=== PATIENT | male | born 1960 | race Two or more races ===

== ENCOUNTER 2022-03-01 17:48 | Emergency (ER) | payer MEDICAID ==
[~2022-03-01] VITALS: Ht 170.2 cm; Wt 74.8 kg
--- NOTE | 2022-03-01 18:52 | NUR ---
still for triage, endorsed to 7pm charge Juan miner
--- NOTE | 2022-03-01 19:46 | NUR ---
Patient's son at bedside
--- NOTE | 2022-03-01 19:50 | NUR ---
Dr Mtz in room MSE in progress
[2022-03-01] MEDS ORDERED: OXYCODONE/APAP 5-325 MG TABLET ONE (19:58)
[2022-03-01] MEDS ORDERED: OXYCODONE/APAP 5-325 MG TABLET PO ONE (20:00)
[2022-03-01] MEDS ORDERED: OXYC-128 PO (22:23)
--- NOTE | 2022-03-01 22:59 | NUR ---
Patient discharged to home in stable condition. Written and verbal after care instructions given. Patient verbalizes understanding of instructions. Stressed follow up or return to ER for worsening s/s. Patient is a/ox4, NAD noted. Patient is accompanied by son
[2022-03-01 23:04] VITALS: BP 137/78
== END 2022-03-01 23:05 | disposition home or self-care (01) ==
LOC: ER 18:01
DX: S70.01XA Contusion of right hip, initial encounter (principal); S70.11XA Contusion of right thigh, initial encounter; S09.90XA Unspecified injury of head, initial encounter; W10.9XXA Fall (on) (from) unspecified stairs and steps, initial encounter; Y92.89 Other specified places as the place of occurrence of the external cause
CPT/HCPCS: 73502; 73700; A4663

== ENCOUNTER 2023-09-21 10:32 | Emergency (ER) | payer MEDICAID ==
[~2023-09-21] VITALS: Ht 170.2 cm; Wt 73.9 kg
[~2023-09-21 10:32] MED LIST: OXYC-128 PO
[2023-09-21] MEDS ORDERED: TAMS-3 PO (11:11)
[2023-09-21 11:48] LABS: BASOPHILS % (AUTO) 0.4 % (0.0-2.0); EOSINOPHILS # (AUTO) 0.1 K/uL (0.0-0.7); EOSINOPHILS % (AUTO) 0.8 % (0.0-7.0); HEMATOCRIT 43.8 % (36.7-47.1); HEMOGLOBIN 14.6 g/dL (12.5-16.3); LYMPHOCYTES # (AUTO) 2.3 K/uL (0.8-4.8); LYMPHOCYTES % (AUTO) 24.1 % (20.5-51.5); MEAN CORPUSCULAR HEMOGLOBIN 29.5 uug (23.8-33.4); MEAN CORPUSCULAR HGB CONC 33 g/dL (32.5-36.3); MEAN CORPUSCULAR VOLUME 88.5 fL (73.0-96.2); MONOCYTES # (AUTO) 0.9 K/uL (0.1-1.30); MONOCYTES % (AUTO) 9.2 % (0.0-11.0); NEUTROPHILS # (AUTO) 6.1 K/uL (1.8-8.9); NEUTROPHILS % (AUTO) 65.5 % (38.5-71.5); PLATELET COUNT (AUTO) 229 K/uL (152-348); RED BLOOD CELL COUNT(AUTO) 4.95 MIL/uL (4.06-5.63); RED CELL DISTRIBUTION WIDTH 13.2 % (12.1-16.2); WHITE BLOOD COUNT (AUTO) 9.3 K/uL (3.6-10.2)
[2023-09-21 11:54] LABS: DIFFERENTIAL COMMENT 1
[2023-09-21 12:03] LABS: CALCIUM 8.4 mg/dL (8.5-10.1); CARBON DIOXIDE 27 mmol/L (21-32); CHLORIDE 105 mmol/L (98-107); CREATININE 0.8 mg/dL (0.6-1.3); GLUCOSE 102 mg/dL (74-106); POTASSIUM 4.1 mmol/L (3.5-5.1); SODIUM SERUM 140 mmol/L (136-145); UREA NITROGEN, BLOOD 24 mg/dL (7-18)
[2023-09-21 12:16] LABS: ALANINE AMINOTRANSFERASE 26 U/L (16-63); ALKALINE PHOSPHATASE 68 U/L (50-136); ASPARTATE AMINOTRANSFERASE 14 U/L (15-37); BILIRUBIN,DIRECT 0.3 mg/dL (0.0-0.2); BILIRUBIN,TOTAL 1.4 mg/dL (0.2-1.0); NT-PRO BNP 23 pg/mL (0-125); TOTAL PROTEIN, SERUM 7.6 g/dL (6.4-8.2)
[2023-09-21] MEDS ORDERED: SWABABLE VALVE TRANSFER SET EA MC ONE (12:41)
[2023-09-21] MEDS ORDERED: IV NORMAL SALINE 250 ML IV ONE (12:42)
[2023-09-21] MEDS ORDERED: IOHEXOL 350 100 ML INFUS..BTL ONE (12:42)
[2023-09-21] MEDS ORDERED: SUCR1ORA4 PO (12:47)
[2023-09-21] MEDS ORDERED: FAMO40TA7 PO (12:47)
[2023-09-21 15:00] VITALS: BP 124/81; O2SAT 99
== END 2023-09-21 15:01 | disposition home or self-care (01) ==
LOC: ER 10:34
DX: R07.89 Other chest pain (principal); Z79.899 Other long term (current) drug therapy
CPT/HCPCS: 99291; 71275; 80076; 80048; 83880; 83690; 85025; 85379; 85730; 84484; 36415; 93005; 71045; Q9967; A4606; A4663

== ENCOUNTER 2025-05-05 10:05 | Emergency (ER) | payer MEDICAID ==
[~2025-05-05] VITALS: Ht 170.2 cm; Wt 77.1 kg
[~2025-05-05 10:05] MED LIST changes: +FAMO40TA7 PO; +SUCR1ORA4 PO; +TAMS-3 PO
[2025-05-05 10:50] VITALS: BP 118/71
[2025-05-05] MEDS ORDERED: TDAP DIPH,PERTUSS,TET VAC/PF 0.5 ML DISP.SYRIN IM ONE (11:48)
[2025-05-05] MEDS ORDERED: LIDOCAINE HCL 1% 20 ML VIAL ONE (12:16)
[2025-05-05] MEDS: TDAP DIPH,PERTUSS,TET VAC/PF 0.5 ML DISP.SYRIN IM ONE (12:37)
[2025-05-05] MEDS: LIDOCAINE 1%-EPI 1:100,000 20 ML VIAL IJ ONE (12:38)
[2025-05-05] MEDS ORDERED: CEPH500C2 PO (13:56)
[2025-05-05] MEDS: NEOMY/BACITRA/POLYMYXIN B OINT UD PACKET TP ONE (14:00)
[2025-05-05 14:39] VITALS: BP 120/68; TEMP 208.2; O2SAT 96
== END 2025-05-05 14:05 | disposition home or self-care (01) ==
LOC: ER 10:05
DX: S50.851A Superficial foreign body of right forearm, initial encounter (principal); Z87.19 Personal history of other diseases of the digestive system; X58.XXXA Exposure to other specified factors, initial encounter; Y93.89 Activity, other specified; Y92.89 Other specified places as the place of occurrence of the external cause; Y99.8 Other external cause status
CPT/HCPCS: 99285; 10120; 76881; 90715; 90471; J3490; A4606; A4663

== ENCOUNTER 2025-05-18 14:34 | Emergency (ER) | payer MEDICAID ==
[~2025-05-18] VITALS: Ht 170.2 cm; Wt 74.8 kg
[~2025-05-18 14:34] MED LIST changes: +CEPH500C2 PO
[2025-05-18 15:36] VITALS: BP 122/68; TEMP 97.7
[2025-05-18 15:41] VITALS: BP 136/80; O2SAT 98
== END 2025-05-18 15:43 | disposition home or self-care (01) ==
LOC: ER 14:34
DX: S51.811D Laceration without foreign body of right forearm, subsequent encounter (principal); Z48.02 Encounter for removal of sutures; Z90.49 Acquired absence of other specified parts of digestive tract; Z87.19 Personal history of other diseases of the digestive system; X58.XXXD Exposure to other specified factors, subsequent encounter
CPT/HCPCS: A4606; A4663

== ENCOUNTER 2025-08-08 11:04 | Emergency (ER) | payer MEDICAID ==
[~2025-08-08] VITALS: Ht 170.2 cm; Wt 75.7 kg
[~2025-08-08 11:04] MED LIST changes: -TAMS-3 PO; +TAMS0.4C PO
[2025-08-08 11:30] VITALS: BP 139/80
[2025-08-08] MEDS ORDERED: AMOX500C2 PO (11:53)
[2025-08-08] MEDS ORDERED: OXYC-128 PO (11:53)
[2025-08-08 12:21] VITALS: BP 139/80; TEMP 98.8; O2SAT 98
== END 2025-08-08 12:22 | disposition home or self-care (01) ==
LOC: ER 11:04
DX: H65.93 Unspecified nonsuppurative otitis media, bilateral (principal); N40.0 Benign prostatic hyperplasia without lower urinary tract symptoms; Z90.49 Acquired absence of other specified parts of digestive tract
CPT/HCPCS: A4606

== ENCOUNTER 2025-08-13 22:59 | Emergency (ER) | payer MEDICAID ==
[~2025-08-13] VITALS: Ht 170.2 cm; Wt 75.7 kg
[~2025-08-13 22:59] MED LIST changes: +AMOX500C2 PO
[2025-08-13 23:18] VITALS: BP 145/91
[2025-08-13] MEDS ORDERED: CLIN-188 PO (23:37)
[2025-08-13] MEDS ORDERED: PSEU120T99 PO (23:37)
[2025-08-13] MEDS ORDERED: CLINDAMYCIN HCL 300 MG CAPSULE ONE (23:40)
[2025-08-13] MEDS ORDERED: PSEUDOEPHEDRINE HCL 30 MG TABLET ONE (23:40)
[2025-08-13] MEDS: CLINDAMYCIN HCL 150 MG CAPSULE PO ONE (23:42)
[2025-08-13] MEDS: PSEUDOEPHEDRINE HCL 30 MG TABLET PO ONE (23:42)
[2025-08-13 23:52] VITALS: BP 141/88; O2SAT 97
== END 2025-08-13 23:46 | disposition home or self-care (01) ==
LOC: ER 23:19
DX: H91.92 Unspecified hearing loss, left ear (principal); N40.0 Benign prostatic hyperplasia without lower urinary tract symptoms; Z90.49 Acquired absence of other specified parts of digestive tract
CPT/HCPCS: A4606; A4663